=== PATIENT | female | born 1975 | race Hispanic/Latino ===

== ENCOUNTER 2021-05-21 07:17 | Emergency (ER) | payer OTHER ==
[~2021-05-21] VITALS: Ht 165.1 cm; Wt 73.9 kg
[2021-05-21 07:24] VITALS: BP 124/93
[2021-05-21] MEDS ORDERED: IBUP-2070 PO (09:00)
[2021-05-21] MEDS ORDERED: GUAIFENESIN-DM 200/20 MG 10 ML PO SCH (09:00)
[2021-05-21] MEDS ORDERED: OSEL75 PO (09:00)
[2021-05-21] MEDS ORDERED: OSELTAMIVIR PHOSPHATE 75 MG CAP PO SCH (09:00)
[2021-05-21] MEDS ORDERED: D-ME118S47 PO (09:00)
== END 2021-05-21 09:10 | disposition home or self-care (01) ==
LOC: EDH 07:17
DX: S83.92XA Sprain of unspecified site of left knee, initial encounter (principal); J10.1 Influenza due to other identified influenza virus with other respiratory manifestations; Z20.822 Contact with and (suspected) exposure to COVID-19; E78.00 Pure hypercholesterolemia, unspecified; I10 Essential (primary) hypertension; W18.39XA Other fall on same level, initial encounter; Y93.89 Activity, other specified; Y92.89 Other specified places as the place of occurrence of the external cause; Y99.8 Other external cause status
CPT/HCPCS: 71045; 73560; 73562; 87635; 87804 ×2; 99284; C9803